=== PATIENT | female | born 1945 | race Two or more races ===

== ENCOUNTER 2019-12-26 13:49 | Emergency (ER) | payer MEDICARE, OTHER ==
[~2019-12-26] VITALS: Ht 162.6 cm; Wt 70.8 kg
[2019-12-26] MEDS ORDERED: ALTEPLASE 100 MG/VIAL VIAL IV ONE (13:52)
--- NOTE | 2019-12-26 13:58 | NUR ---
branden, from home, c/o high bp and weird feeling on the right leg 1hr [employer], did not take bp meds this morning, 220/110 on scene, to ER bed 10, patient seems anxious, hooked to monitoring tech and pox, changed to hosp gown, patient aao x 4, breathing even and unlabored. warm blanket provided, Dr Gonzales at bedside
--- NOTE | 2019-12-26 14:00 | NUR ---
IV LINE ESTABLISHED BLOOD DRAWN AND SENT TO LAB.
--- NOTE | 2019-12-26 14:05 | NUR ---
AT BEDSIDE FOR EVAL.
--- NOTE | 2019-12-26 14:08 | NUR ---
CODE STROKE ACTIVATED.
--- NOTE | 2019-12-26 14:09 | NUR ---
SEE STROKE SHEET
--- NOTE | 2019-12-26 14:12 | NUR ---
PT IS WHEELED TO CT SCAN VIA [facility].
[2019-12-26 14:15] LABS: BASOPHILS # (AUTO) 0.1 /CMM (0.0-0.2); BASOPHILS % (AUTO) 1.6 % (0.0-2.0); EOSINOPHILS % (AUTO) 1.4 % (0.0-6.0); HEMATOCRIT 35 % (33-45); HEMOGLOBIN 11.9 g/dL (11.5-14.8); LYMPHOCYTES % (AUTO) 36.2 % (20.0-44.0); MEAN CORPUSCULAR HGB CONC 34 g/dl (31.0-36.0); MEAN CORPUSCULAR VOLUME 87 fL (82-100); MONOCYTES # (AUTO) 0.5 /CMM (0.1-1.30); NEUTROPHILS # (AUTO) 2.9 /CMM (1.8-8.9); NEUTROPHILS % (AUTO) 51.8 % (43.0-81.0); PLATELET COUNT (AUTO) 190 /CMM (150-450); RED BLOOD CELL COUNT(AUTO) 4.06 MIL/uL (4.0-5.2); WHITE BLOOD COUNT (AUTO) 5.6 K/uL (4.3-11.0)
[2019-12-26 14:19] LABS: CALCIUM, SERUM 9.2 mg/dL (8.5-10.1); CARBON DIOXIDE 25 mmol/L (21-32); CHLORIDE 105 mmol/L (98-107); GLUCOSE 120 mg/dL (74-106); POTASSIUM 3.6 mmol/L (3.5-5.1); SODIUM SERUM 141 mmol/L (136-145); UREA NITROGEN, BLOOD 17 mg/dL (7-18)
--- NOTE | 2019-12-26 14:19 | NUR ---
BACK FROM CT SCAN
[2019-12-26 14:25] LABS: ALANINE AMINOTRANSFERASE 22 U/L (12-78); ALBUMIN 3.8 g/dL (3.4-5.0); ALKALINE PHOSPHATASE 57 U/L (46-116); ASPARTATE AMINOTRANSFERASE 19 U/L (15-37); BILIRUBIN,DIRECT 0.1 mg/dL (0.0-0.2); BILIRUBIN,TOTAL 0.3 mg/dL (0.2-1.0); TOTAL PROTEIN, SERUM 7.8 g/dL (6.4-8.2)
--- NOTE | 2019-12-26 14:35 | NUR ---
NEURO STROKE MD SPEAKING TO PATIENT'S SON TO ADMINISTER TPA. BENEFITS AND RISKS ALSO PROVIDED. SON TRANSLATED INFORMATION TO PATIENT, AGREED TO ADMINISTER TPA, PATIENT SIGNED CONSENT, CO-SIGNATURE OF SON SINCE PATIENT CANNOT SIGN PROPERLY.
--- NOTE | 2019-12-26 14:41 | NUR ---
Note primitivo in EDM - 12/26/19 at 1542 by KARTHIKEYAN GOT OFF THE PHONE WITH JOSE HUI FROM [facility]. PT HAS BEEN ACCEPTED TO [facility]. SHE WILL CALL BACK WITHIN 90 MINUTES WITH TRANSFER INFO. IF NO INFO PROVIDED BY 1600 WILL ADMIT HERE.
[2019-12-26 14:42] VITALS: BP 187/96
--- NOTE | 2019-12-26 14:45 | NUR ---
[facility] CALLED,SPOKE WITH ART RN
[2019-12-26 14:47] LABS: CHOLESTEROL 236 mg/dL (<200); HDL CHOLESTEROL 63 mg/dL (40-60); LDL 145 mg/dL (0-99); TRIGLYCERIDES 180 mg/dL (30-150)
[2019-12-26] MEDS ORDERED: LABETALOL HCL IV 100MG VIAL ONE (14:49)
[2019-12-26] MEDS ORDERED: NICARDIPINE IN DEXTROSE,ISO-OS 200 ML IV ONE (14:51)
[2019-12-26] MEDS: ALTEPLASE 100 MG/VIAL VIAL IV ONE (14:59)
--- NOTE | 2019-12-26 14:59 | NUR ---
TPA BOLUS GIVEN OVER 1 MIN.
[2019-12-26] MEDS ORDERED: NICARDIPINE IN NACL, ISO-OSM 200 ML IV ONE (15:00)
--- NOTE | 2019-12-26 15:00 | NUR ---
TPA DRIP STARTED.
[2019-12-26] MEDS ORDERED: IOHEXOL-350 100 ML VIAL IV ONE (15:01)
[2019-12-26] MEDS ORDERED: CT SWABBABLE VALVE TRANS SET 1 EA INFUS.SET MC ONE (15:01)
[2019-12-26] MEDS ORDERED: IV NS 0.9% 250 ML IV ONE (15:01)
--- NOTE | 2019-12-26 15:11 | NUR ---
PT IS WHEELED TO CT SCAN VIA ACLS.
[2019-12-26] MEDS ORDERED: ALTEPLASE 100 MG in WATER FOR INJECTION,STERILE 100 ML IV ONE (15:30)
--- NOTE | 2019-12-26 15:48 | NUR ---
[facility] RIG FOR CODE STROKE TRANSFER ARRIVED.
--- NOTE | 2019-12-26 16:12 | NUR ---
CCT AWAITING CTA OFFICIAL RESULTS.
--- NOTE | 2019-12-26 16:16 | NUR ---
Patient picked up by [id number] with CCT RN Jake Hernadez of [facility] in stable condition. No noted bleeding. Report and Clinicals provided to CCT nurse.
== END 2019-12-26 16:19 | disposition short-term general hospital (02) ==
LOC: ER 13:51
DX: I63.9 Cerebral infarction, unspecified (principal); R53.1 Weakness; I10 Essential (primary) hypertension; J45.909 Unspecified asthma, uncomplicated; Z79.82 Long term (current) use of aspirin
CPT/HCPCS: 36415; 70450; 70496; 71045; 80048; 80061; 80076; 82962; 84484; 85025; 85730; 93005; 96365; 99285; J2997; J7050 ×2; Q9967; J3490